=== PATIENT | female | born 1940 ===

== ENCOUNTER 2016-08-30 08:00 | Day surgery (SDC) | payer MEDICARE, MEDICAID ==
[2016-08-27 12:21] VITALS: BMI 45.9
[2016-08-30] MEDS ORDERED: Lactated Ringer's 1,000 ML IV ONE (10:20)
[2016-08-30] MEDS ORDERED: Propofol 10 mg/ml Inj (20 ML) ONE (10:25)
[2016-08-30] MEDS ORDERED: HYDROmorphone 0.5 mg/0.5 ml ISec IVP PRN (11:13)
--- NOTE | 2016-08-30 11:16 | PCM.SURG1 ---
Surgeon's Initial Post Op Note - Surgeon's Notes Surgeon: Siria Spears MD [employer] Supervisor: none Type of Anesthesia: General LMA Pre-Operative Diagnosis: Postmenopasual bleeding, fibroids Operative Findings: enlarged uterus, mutiparous cervix, uterus sounded to 8cm, submucodal mass appears like myoma, bilateral ostia visualized, tsage III rectocele Post-Operative Diagnosis: same as above, submucosal myoma Operation Performed: Hysteroscopic myomectomy, fractinal dilatoin and currettage Specimen/Specimens Removed: endocervical currettings, endometrial currettings, submucosal myoma Estimated Blood Loss: EBL {In ML}: 5 Blood Products Given: N/A Drains Used: No Drains Post-Op Condition: Good Date of Surgery/Procedure: 08/30/16 Time of Surgery/Procedure: 10:30
--- NOTE | 2016-08-30 12:30 | OP ---
PROCEDURE DATE: 08/30/2016 SURGEON: Dr. Siria Spears INFORMATICS SPEC: None. TYPE OF ANESTHESIA: General LMA. PREOPERATIVE DIAGNOSES: Postmenopausal bleeding, fibroids. POSTOPERATIVE DIAGNOSES: Postmenopausal bleeding, fibroids, submucosal myoma. OPERATIVE FINDINGS: Enlarged uterus, multiparous cervix. Uterus sounded to 8 cm. Submucosal mass, appears like myoma, protruding, occluding 75% of uterine cavity. Bilateral ostia visualized. Stage II rectocele. OPERATION PERFORMED: Hysteroscopic myomectomy, fractional dilation and curettage. SPECIMEN REMOVED: Endocervical curettings, endometrial curettings, submucosal myoma. ESTIMATED BLOOD LOSS: 5 mL. BLOOD PRODUCTS: None. COMPLICATIONS: None. The patient was taken to the operating room where she was given general anesthesia. Once this was fo und be adequate, she was positioned on the operating table in dorsal supine position with legs suppor frank using stirrups. The patient was then prepped and draped in usual sterile fashion. Timeout confi rmed correct patient and correct procedure. Following this, a bimanual exam was performed with above -mentioned findings. A Carter retractor was placed in the anterior, posterior fornix of vagina and ce rvix was adequately visualized. Endocervical curettings were obtained with a Brandan curette and s ent to pathology on [facility]. Single tooth tenaculum was placed on the anterior lip of the cervix. The uterus was then sounded to 8 cm. Following this, cervix was sequentially dilated with the Jaylon dila tors to allow for introduction of the scope under direct visualization using normal saline as the dis tention media. Upon visualization, there was a mass noted to be protruding, attached along the anter ior uterine wall into the cavity, 75% including. Bilateral ostia were visualized behind the mass. F ollowing this, the MyoSure device was then inserted under direct visualization and the mass was caref ully resected. Due to fluid deficit, the procedure was then stopped and approximately 50% of the mas s was then removed. The hysteroscope was then removed. A gentle curettage was done until a gritty t exture was noted. Following this, the hysteroscope was then reinserted. There was good hemostasis n oted. The single tooth tenaculum was removed. There was good hemostasis at the tenaculum puncture s ites. All instruments were removed. At the end of the procedure, all needles, sponges and instrumen t counts were noted to be correct x 2. The patient tolerated the procedure well and was transferred to the recovery room in stable condition. Siria Spears MD cc: [id number] TT: 08/30/2016 12:29:19 en
[2016-08-30 12:55] VITALS: O2SAT 96
[2016-08-30 15:04] VITALS: BP 147/72; PULSE 76; RESP 20; TEMP 97.8
--- NOTE | 2016-09-03 12:43 | CARD ---
APPROVED REPORT EKG Measurement Heart [id number] IL [id number] [id number] <Conclusion> Normal sinus rhythm Normal ECG
== END 2016-08-30 13:40 | disposition home or self-care (01) ==
LOC: C.SDS 08:00
PROVIDERS: ATTEND Obstetrics & Gynecology
DX: D25.0 Submucous leiomyoma of uterus (principal); N95.0 Postmenopausal bleeding; R93.8 Abnormal findings on diagnostic imaging of other specified body structures; E11.9 Type 2 diabetes mellitus without complications; E03.9 Hypothyroidism, unspecified; J45.909 Unspecified asthma, uncomplicated; E78.5 Hyperlipidemia, unspecified; F32.9 Major depressive disorder, single episode, unspecified; Z98.890 Other specified postprocedural states; Z79.84 Long term (current) use of oral hypoglycemic drugs; Z79.82 Long term (current) use of aspirin; Z79.899 Other long term (current) drug therapy

== ENCOUNTER 2016-11-19 11:48 | Day surgery (SDC) | payer MEDICARE, MEDICAID ==
[2016-08-27 12:21] VITALS: BMI 45.9
[2016-11-19] MEDS ORDERED: (Novolin R) Insulin Human Regular 100 units/ml vial IV ONE (13:28)
[2016-11-19] MEDS ORDERED: (Novolin R) Insulin Human Regular 100 units/ml vial ONE (13:37)
[2016-11-19] MEDS ORDERED: Sodium Chloride 0.9% 1,000 ML IV ONE (13:42)
[2016-11-19] MEDS ORDERED: Lidocaine Hydrochloride 5 ML INJ ONE (14:01)
[2016-11-19] MEDS ORDERED: Propofol 10 mg/ml Inj (20 ML) ONE (14:01)
[2016-11-19] MEDS ORDERED: Lactated Ringer's 1,000 ML IV ONE (15:42)
[2016-11-19] MEDS ORDERED: HYDROmorphone 0.5 mg/0.5 ml ISec IVP PRN (15:47)
--- NOTE | 2016-11-19 17:34 | PCM.SURG1 ---
Surgeon's Initial Post Op Note - Surgeon's Notes Surgeon: Siria Spears MD Date Puller: none Type of Anesthesia: General Endo Pre-Operative Diagnosis: Endometrial hyperplasia , postmenpaouse bleeding Operative Findings: small anteverted uteurs, no adnexal masses, thicked white endoemtriru, bilaterl ostia visulaized polypoid tissue Post-Operative Diagnosis: same as above Operation Performed: Operative hysteroscpy fractional dilation and currettage. Specimen/Specimens Removed: endocervical currettage, endometrial currettage Estimated Blood Loss: EBL {In ML}: 5 Blood Products Given: N/A Drains Used: No Drains Post-Op Condition: Good Date of Surgery/Procedure: 11/19/16 Time of Surgery/Procedure: 15:00
[2016-11-19 17:49] VITALS: BP 134/67; PULSE 74; RESP 18; TEMP 97.8; O2SAT 96
--- NOTE | 2016-11-20 05:13 | OP ---
DATE: 11/19/2016 SURGEON: Dr. Siria Spears. ANIMAL TECH: None. TYPE OF ANESTHESIA: General endotracheal. PREOPERATIVE DIAGNOSIS: Endometrial hyperplasia, postmenopausal bleeding. POSTOPERATIVE DIAGNOSIS: Endometrial hyperplasia, postmenopausal bleeding. OPERATION PERFORMED: Operative hysteroscopy and fractional dilation and curettage. OPERATIVE FINDINGS: Small anteverted uterus. No adnexal masses. Thickened white endometrium proliferative with polypoid tissue. Bilateral ostia visualized. SPECIMEN REMOVED: Endocervical curettings and endometrial curettings. ESTIMATED BLOOD LOSS: 5 mL. BLOOD PRODUCTS: None. COMPLICATIONS: None. DESCRIPTION OF PROCEDURE: The patient is a 76 year old with postmenopausal bleeding diagnosed with endometrial hyperplasia by D and C hysteroscopy, which was subsequently medically cleared and placed on Megace for endometrial hyperplasia and bleeding. The patient subsequently developed side effects from the medication and medication was discontinued and was being monitored for bleeding. The patient was subsequently cleared for total abdominal hysterectomy, and on preoperative day of examination, was noted to have elevated blood sugars greater than 350. The patient was appropriately counseled in regards to risk of infection, stroke, CT and other complications associated with elevated blood sugar and poor glycemic control and decision was made electively between patient and her daughter after discussing with myself and my anesthesiologist about risks to perform only a dilation and curettage and endometrial biopsy rather than a hysterectomy, and the patient would be managed by primary care for better optimization of blood sugar and could be rescheduled at that point and would also follow up regarding biopsy results to see if any progression or if disease was stable. The patient agreed and consented. Risks, benefits, alternatives and indications for dilation and curettage but not limited to injury, perforation, or bleeding was discussed with the patient and the patient consented and signed. The patient was taken to the operating room where she was given general anesthesia. Once it was adequate, the patient was placed on the operating table in dorsal lithotomy position with legs supported using stirrups. Bimanual exam was performed with the above-mentioned findings. A red rubber catheter was then inserted in the urethra to drain the bladder. Thin retractor was placed in the anterior and posterior fornix of the vagina and the cervix was adequately visualized. A single-toothed tenaculum was placed in the anterior lip of the cervix and endocervical curettings were obtained with a Kevlarissaian curette and sent to pathology on [facility]. The uterus was then sounded and the uterus was sequentially dilated to allow for introduction of the hysteroscopy under direct visualization and bilateral ostia visualized. The hysteroscope was then removed and a gentle curettage was done 360 degrees and the specimen was removed and sent to pathology on [facility]. The single-tooth tenaculum was removed. There was good hemostasis noted. All instruments were removed. At the end of the procedure, all needle, sponge, and instrument counts were noted and correct x2. The patient tolerated the procedure well and was transferred to the recovery room in stable condition. Siria Spears MD
--- NOTE | 2016-12-04 07:45 | CP.SDSHP ---
Same Day Surgery H & P - History Proposed Procedure: Total abdominal hysteresctomy, changed to Hysteroscopy, dilation andcurrettage Pre-Op Diagnosis: Endometrial intraepithelial neoplasia - Previous Medical/Surgical History Cardiac: Hypertension Endocrine/Metabolic: Diabetes Pain: 0. No Pain - Allergies Allergies: Allergies No Known Allergies Allergy (Verified 11/19/16 12:48) - Physical Exam Mental Status: Alert & Oriented x3 Neuro: WNL Lungs: WNL GI: WNL - {Optional Preform as Required} Abdomen: WNL BIOMETRICS HEAD: WNL - Impression Impression: 76y/o wth endometrial intrapelithal neoplasia with peristent utierne bleeding for aj however canceld due to elevated blodo glucose grater than 300s. for hysteroscopy, dilation and currettage. r/b/a/i dw paitent and daughter in rgards to risk not limited to hypoglycmeami, hyperglucmemai, stroke , infection, wounde infectin needing addtinal surgery, bleeding, etc. 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 pt and pt daughter agree, all questions anwered, consent signed, witnesed also by anesthesia. Pt. Evaluated Today:Candidate for Anesthesia & Procedure: Yes - Date & Time Date: 11/19/16 Time: 12:00 Short Stay Discharge - Short Stay Discharge Admitting Diagnosis/Reason for Visit: ENDOMETRIAL INTRAEPITHELIAL NEOPLASIA [EIN ] Disposition: HOME/ ROUTINE
== END 2016-11-19 18:00 | disposition home or self-care (01) ==
LOC: UNDOADMIN 11:48 → C.9S 11:48 → C.SDS 11:48 → EDSTATUS 13:45 → UNDODISIN 18:00 → C.SDS 18:00
PROVIDERS: ATTEND Obstetrics & Gynecology
PROC: 0UDB8ZX Extraction of Endometrium, Via Natural or Artificial Opening Endoscopic, Diagnostic (ICD-10-PCS; principal; 2016-11-19 13:45)
DX: N85.00 Endometrial hyperplasia, unspecified (principal); N95.0 Postmenopausal bleeding
CPT/HCPCS: 36415; 58558; 82948; 86850; 86900; 88305; J2405; J2704; J3010; J7040; J7120

== ENCOUNTER 2017-07-11 15:58 | Emergency (ER) | payer MEDICARE, MEDICAID ==
[2017-07-11 15:58] VITALS: BMI 45.9
[2017-07-11 16:19] VITALS: TEMP 98.6
[2017-07-11 17:29] LABS: BASO % 0.4 % (0.0-2.0); EOS # 0.3 K/uL (0.0-0.7); EOS % 3.2 % (0.0-4.0); HEMOGLOBIN 13.9 g/dL (11.0-16.0); LYMPH # 3.2 K/uL (1.0-4.3); LYMPH % 29.7 % (20.0-40.0); MEAN CORPUSCULAR HEMOGLOBIN 28.1 pg (27.0-31.0); MEAN CORPUSCULAR HGB CONC 32.7 g/dL (33.0-37.0); MEAN PLATELET VOLUME 8.4 fL (7.2-11.7); MONO # 1.1 K/uL (0.0-0.8); MONO % 9.8 % (0.0-10.0); NEUT # 6.2 K/uL (1.8-7.0); NEUT % 56.9 % (50.0-75.0); RBC 4.94 Mil/uL (3.80-5.20); WHITE BLOOD COUNT 10.9 K/uL (4.8-10.8)
[2017-07-11 17:35] LABS: MEAN CELL VOLUME 85.7 fL (81.0-99.0)
[2017-07-11 17:48] LABS: ALB/GLOB RATIO 0.9 (1.0-2.1); ALBUMIN 3.9 g/dL (3.5-5.0); CALCIUM 9.4 mg/dl (8.6-10.4)
--- NOTE | 2017-07-11 18:07 | RAD ---
PROCEDURE: Radiographs of the chest and abdomen (obstructive series) HISTORY: abd pain COMPARISON: No prior. TECHNIQUE: AP radiograph of the chest, with upright and supine radiographs of the abdomen. FINDINGS: CHEST: Lungs: Clear. Cardiovascular: Normal size heart. No pulmonary vascular congestion. Pleura: No pleural fluid. No pneumothorax. Other findings: None. ABDOMEN AND PELVIS: Bowel: Unremarkable bowel gas pattern. No evidence of mechanical obstruction. Free air: None. Bones: Unremarkable. Other findings: Calcified uterine fibroids. IMPRESSION: Normal bowel gas pattern. Calcified uterine fibroids. No pulmonary infiltrate.
--- NOTE | 2017-07-11 18:13 | C.PDOC ---
History Of Present Illness 77 year old female presents to the ED after being sent by her PMD for evaluation of her blood pressure. Patient was being seen at outpatient [facility] for dysfunctional uterine bleeding and was found to have elevated blood pressure at the time. She denies chest pain, headache, dizziness and has no complaints at this time. PMD: Siria Spears Time Seen by Provider: 07/11/17 16:43 Chief Complaint (Nursing): High Blood Pressure History Per: Patient History/Exam Limitations: no limitations Current Symptoms Are (Timing): Still Present Associated Symptoms: denies: Chest Pain, Headache Additional History Per: Patient Past Medical History Reviewed: Historical Data, Nursing Documentation, Vital Signs Vital Signs: Last Vital Signs Temp 98.6 F 07/11/17 16:14 Pulse 82 07/11/17 20:12 Resp 20 07/11/17 20:12 BP 130/74 07/11/17 20:12 Pulse Ox 95 07/11/17 20:20 - Medical History PMH: Anxiety, Arthritis, COPD, Diabetes, HTN Denies: Chronic Kidney Disease Surgical History: No Surg Hx - [facility] Procedures EXTRACTION OF ENDOMETRIUM, ENDO, DIAGN (11/19/16) NON-INVASIVE MECHANICAL VENTILATION (09/26/13) Family History: States: Unknown Family Hx - Social History Hx Tobacco Use: No Hx Alcohol Use: No Hx Substance Use: No - Immunization History Hx Tetanus Toxoid Vaccination: Yes Hx Influenza Vaccination: Yes Hx Pneumococcal Vaccination: Yes Review Of Systems Constitutional: Positive for: Other (blood pressure control) Cardiovascular: Negative for: Chest Pain Neurological: Negative for: Headache, Dizziness Physical Exam - Physical Exam Appears: Non-toxic, No Acute Distress, Other (morbidly obese ) Skin: Normal Color, Warm, Dry Head: Atraumatic, Normacephalic Eye(s): bilateral: Normal Inspection Oral Mucosa: Moist Neck: Supple Chest: Symmetrical, No Deformity, No Tenderness Cardiovascular: Rhythm Regular, No Murmur Respiratory: Normal Breath Sounds, No Rales, No Rhonchi, No Wheezing Gastrointestinal/Abdominal: Soft, No Tenderness, No Guarding, No Rebound, Other (obese ) Extremity: Normal ROM, Capillary Refill (less than 2 seconds ) Neurological/Psych: Oriented x3, Normal Speech, Normal Cognition ED Course And Treatment - Laboratory Results Result Diagrams: 07/11/17 17:21 07/11/17 17:21 Lab Interpretation: Normal (ua neg.) ECG: Interpreted By Me ECG Rhythm: Sinus Rhythm ECG Interpretation: Normal Rate From EC O2 Sat by Pulse Oximetry: 95 (on RA) Pulse Ox Interpretation: Normal - Radiology CXR: Interpreted by Me CXR Interpretation: Yes: No Acute Disease - Other Rad cathleen x 2 X-Ray: Interpreted by Me (+FOS), Read By Radiologist Interpretation: IMPRESSION: Normal bowel gas pattern. Calcified uterine fibroids. No pulmonary infiltrate. Progress Note: Bloodwork, UA, Obstructive Series Abdomen, EKG ordered and reviewed. Norvasc PO administered. 1715: Case discussed with Dr. Siria Spears , who recommends BP control. Patient has no abdominal issues at this time. Reevaluation Time: 19:47 Reassessment Condition: Improved - Physician Consult Information Outcome Of Conversation: d.w Dr Fay Spears- who referred for elev bp, but BP 134/67 without any meds given. h/o deferred procedures (elective hysterectomy for DUB) due to elev BP on surgical day- may be related to pt's anxiety. Medical Decision Making Medical Decision Making: normal bp no UTI normal labs + chronic constipation. Disposition Doctor Will See Patient In The: Office Counseled Patient/Family Regarding: Studies Performed, Diagnosis - Disposition Referrals: Siria Spears MD [Staff Provider] - Disposition: HOME/ ROUTINE Disposition Time: 19:49 Condition: GOOD Additional Instructions: todos lencho examenes salieron normal Estas estrenieda: vianca un purgante Cambios de dieta Sigue con Dra Spears emely necessario. Instructions: Constipation, Adult (DC) Forms: [employer] (Ghanaian) Print Language: BELGIAN - Clinical Impression Clinical Impression: Colicky LLQ abdominal pain - Scribe Statement The provider has reviewed the documentation as recorded by the Scribe (Mary Beth Spears) Provider Attestation: All medical record entries made by the Scribe were at my direction and personally dictated by me. I have reviewed the chart and agree that the record accurately reflects my personal performance of the history, physical exam, medical decision making, and the department course for this patient. I have also personally directed, reviewed, and agree with the discharge instructions and disposition.
[2017-07-11 19:39] VITALS: RESP 20
[2017-07-11 19:44] LABS: SQUAMOUS EPITHIAL 4 /hpf (0-5); URINE BACTERIA RARE (<OCC); URINE BILIRUBIN NEGATIVE (NEGATIVE); URINE BLOOD NEGATIVE (NEGATIVE); URINE CLARITY Hazy (Clear); URINE COLOR Yellow (YELLOW); URINE GLUCOSE (UA) NORMAL (Normal); URINE LEUKOCYTE ESTERASE NEG Leu/uL (Negative); URINE PROTEIN NEGATIVE (NEGATIVE); URINE UROBILINOGEN NORMAL mg/dL (0.2-1.0)
[2017-07-11 20:12] VITALS: BP 130/74; PULSE 82
[2017-07-11 20:14] VITALS: O2SAT 95
--- NOTE | 2017-07-14 17:01 | CARD ---
APPROVED REPORT EKG Measurement Heart [id number] NE 170P35 [id number] <Conclusion> Normal sinus rhythm Normal ECG
== END 2017-07-11 20:29 | disposition home or self-care (01) ==
LOC: C.ER 15:58
DX: R10.84 Generalized abdominal pain (principal); I10 Essential (primary) hypertension; E11.9 Type 2 diabetes mellitus without complications